=== PATIENT | male | born 1965 | race African-American/Black ===

== ENCOUNTER 2023-03-01 21:43 | Emergency (ER) | payer MEDICARE, MEDICAID | END 2023-03-01 22:44 | disposition left against medical advice (07) | LOC: ER 21:43 | DX: M79.89 Other specified soft tissue disorders (principal); Z53.21 Procedure and treatment not carried out due to patient leaving prior to being seen by health care provider ==

== ENCOUNTER 2023-03-03 05:03 | Inpatient (IN) | payer MEDICARE, MEDICAID ==
[~2023-03-03] VITALS: Ht 177.8 cm; Wt 113.4 kg
[2023-03-03 06:30] VITALS: PULSE 93; RESP 14; TEMP 97.9; O2SAT 94
[2023-03-03] MEDS ORDERED: ONDANSETRON HCL 4 MG/2 ML VIAL IV ONE (06:45)
[2023-03-03] MEDS ORDERED: HYDROmorphone HCL 2 MG/ML VL/or syr IV ONE (06:45)
[2023-03-03] MEDS ORDERED: LABETALOL HCL 5 MG/ML 4ML SYRINGE IV ONE (06:45)
[2023-03-03 07:23] LABS: Urine Bacteria FEW /hpf (None Seen); Urine Blood Negative /uL (Negative); Urine Clarity Clear (Clear); Urine Color Yellow (Yellow); Urine Hyaline Cast FEW /lpf (0 - 2); Urine Mucus FEW (None Seen); Urine Protein, UAD 1+ (Negative); Urine Specific Gravity 1.023 (1.001-1.035); Urine Urobilinogen Normal (Negative); Urine WBC 1 /hpf (0 - 3); Urine pH 6.5 (5.0-8.0)
[2023-03-03] MEDS ORDERED: diphenhdrAMINE HCL 50 MG/1 ML VL IV ONE (09:15)
[2023-03-03] MEDS ORDERED: MORPHINE SULFATE INJ 2 MG/ml SYRG IV PRN (12:15)
[2023-03-03] MEDS ORDERED: NITROGLYCERIN 0.4 MG SL TAB SL PRN (12:15)
[2023-03-03] MEDS ORDERED: HYDROmorphone HCL 2 MG/ML VL/or syr IV PRN (12:15)
[2023-03-03 12:46] VITALS: O2SAT 98
[2023-03-03 12:58] VITALS: BP 143/111; PULSE 86; RESP 15
== END 2023-03-03 14:24 | disposition left against medical advice (07) | DRG 305 ==
LOC: ER 05:03 → EDBD 05:03 → OVERFLOW 12:04
PROVIDERS: ADMIT Internal Medicine Pulmonary Disease; ATTEND Internal Medicine Pulmonary Disease
DX: I16.0 Hypertensive urgency (principal); G35 Multiple sclerosis; Z53.29 Procedure and treatment not carried out because of patient's decision for other reasons; I11.9 Hypertensive heart disease without heart failure; Z88.8 Allergy status to other drugs, medicaments and biological substances
CPT/HCPCS: 71045; 81001; 93005; 96374; 96375; 96376; G0378; J2405; J3490

== ENCOUNTER 2023-03-07 06:16 | Emergency (ER) | payer MEDICARE, MEDICAID ==
[~2023-03-07] VITALS: Ht 182.9 cm; Wt 81.8 kg
[2023-03-07] MEDS ORDERED: HYDROmorphone HCL 2 MG/ML VL/or syr IV ONE (06:45)
[2023-03-07] MEDS ORDERED: HYDROmorphone HCL 2 MG/ML VL/or syr IM ONE (06:45)
[2023-03-07] MEDS ORDERED: ONDANSETRON HCL 4 MG/2 ML VIAL IM ONE (06:45)
[2023-03-07] MEDS ORDERED: ONDANSETRON HCL 4 MG/2 ML VIAL IV ONE (06:45)
[2023-03-07] MEDS ORDERED: diphenhdrAMINE HCL 50 MG/1 ML VL IM ONE (07:15)
[2023-03-07 07:31] VITALS: TEMP 97.9; O2SAT 95
[2023-03-07 07:50] VITALS: BP 111/77; PULSE 99; RESP 16
== END 2023-03-07 07:51 | disposition home or self-care (01) ==
LOC: EDSEX 06:16 → EDBD 06:16 → ER 06:16
DX: M79.10 Myalgia, unspecified site (principal); I11.0 Hypertensive heart disease with heart failure; I50.9 Heart failure, unspecified; I25.2 Old myocardial infarction; E78.5 Hyperlipidemia, unspecified; Z86.73 Personal history of transient ischemic attack (TIA), and cerebral infarction without residual deficits; Z88.8 Allergy status to other drugs, medicaments and biological substances
CPT/HCPCS: 93005; 96372; 99284; J1170; J1200; J2405

== ENCOUNTER 2023-03-10 15:54 | Emergency (ER) | payer MEDICARE, MEDICAID ==
[~2023-03-10] VITALS: Ht 182.9 cm; Wt 107.0 kg
[2023-03-10 16:06] VITALS: BP 118/72; PULSE 84; RESP 16; O2SAT 100
== END 2023-03-10 22:58 | disposition left against medical advice (07) ==
LOC: ER 15:54
DX: M54.50 Low back pain, unspecified (principal); G89.29 Other chronic pain; I11.0 Hypertensive heart disease with heart failure; I50.9 Heart failure, unspecified; I25.2 Old myocardial infarction; E78.5 Hyperlipidemia, unspecified; Z86.73 Personal history of transient ischemic attack (TIA), and cerebral infarction without residual deficits; Z88.8 Allergy status to other drugs, medicaments and biological substances

== ENCOUNTER 2023-03-12 07:51 | Emergency (ER) | payer MEDICARE, MEDICAID ==
[~2023-03-12] VITALS: Ht 190.5 cm; Wt 107.7 kg
[2023-03-12 07:55] VITALS: BP 126/76; PULSE 86; RESP 18; O2SAT 97
== END 2023-03-12 08:19 | disposition left against medical advice (07) ==
LOC: ER 07:51
DX: G89.29 Other chronic pain (principal); M54.50 Low back pain, unspecified; I11.0 Hypertensive heart disease with heart failure; I50.9 Heart failure, unspecified; I25.2 Old myocardial infarction; E78.5 Hyperlipidemia, unspecified; Z76.5 Malingerer [conscious simulation]; Z86.73 Personal history of transient ischemic attack (TIA), and cerebral infarction without residual deficits; Z88.8 Allergy status to other drugs, medicaments and biological substances

== ENCOUNTER 2023-03-14 13:12 | Emergency (ER) | payer MEDICARE, MEDICAID ==
[~2023-03-14] VITALS: Ht 182.9 cm; Wt 108.3 kg
[2023-03-14] MEDS ORDERED: diphenhdrAMINE HCL 50 MG/1 ML VL IM ONE (16:00)
[2023-03-14] MEDS ORDERED: HYDROmorphone HCL 2 MG/ML VL/or syr IM ONE (16:00)
[2023-03-14 16:30] VITALS: BP 146/89; PULSE 97; RESP 18; TEMP 97.2; O2SAT 98
== END 2023-03-14 16:43 | disposition home or self-care (01) ==
LOC: ER 13:12
DX: G35 Multiple sclerosis (principal); G89.29 Other chronic pain; M54.59 Other low back pain; I11.0 Hypertensive heart disease with heart failure; I50.9 Heart failure, unspecified; I25.2 Old myocardial infarction; E78.5 Hyperlipidemia, unspecified; Z86.73 Personal history of transient ischemic attack (TIA), and cerebral infarction without residual deficits; Z88.6 Allergy status to analgesic agent
CPT/HCPCS: 96372; 99284; J1170; J1200

== ENCOUNTER 2023-03-15 10:01 | Emergency (ER) | payer MEDICARE, MEDICAID ==
[~2023-03-15] VITALS: Ht 182.9 cm; Wt 108.8 kg
[2023-03-15 10:26] VITALS: TEMP 97.1; O2SAT 96
[2023-03-15] MEDS ORDERED: ONDANSETRON ODT 4 MG TAB PO ONE (10:45)
[2023-03-15] MEDS ORDERED: diphenhdrAMINE HCL 50 MG/1 ML VL IM ONE (10:45)
[2023-03-15] MEDS ORDERED: HYDROmorphone HCL 2 MG/ML VL/or syr IM ONE (10:45)
[2023-03-15 11:04] VITALS: BP 141/104; PULSE 77; RESP 19
== END 2023-03-15 11:17 | disposition home or self-care (01) ==
LOC: ER 10:01
DX: G89.29 Other chronic pain (principal); M54.59 Other low back pain; F11.20 Opioid dependence, uncomplicated; E78.5 Hyperlipidemia, unspecified; I10 Essential (primary) hypertension; Z76.5 Malingerer [conscious simulation]; Z88.8 Allergy status to other drugs, medicaments and biological substances; Z86.73 Personal history of transient ischemic attack (TIA), and cerebral infarction without residual deficits; Z98.890 Other specified postprocedural states
CPT/HCPCS: 96372; 99284; J1170; J1200; Q0162

== ENCOUNTER 2023-03-16 11:53 | Emergency (ER) | payer MEDICARE, MEDICAID ==
[~2023-03-16] VITALS: Ht 182.9 cm; Wt 107.9 kg
[2023-03-16 12:28] VITALS: BP 143/88; PULSE 89; RESP 17; TEMP 97.1; O2SAT 100
[2023-03-16] MEDS ORDERED: diphenhdrAMINE HCL 50 MG/1 ML VL IM ONE (13:15)
[2023-03-16] MEDS ORDERED: KETOROLAC TROMETH 30 MG/ML 1ML VIAL IV ONE (13:15)
[2023-03-16] MEDS ORDERED: KETOROLAC TROMETH 60MG/2ML VIAL IM ONE (13:45)
== END 2023-03-16 13:20 | disposition home or self-care (01) ==
LOC: ER 11:53
DX: G89.29 Other chronic pain (principal); M54.59 Other low back pain; F11.20 Opioid dependence, uncomplicated; I10 Essential (primary) hypertension; E78.5 Hyperlipidemia, unspecified; Z76.5 Malingerer [conscious simulation]; Z86.73 Personal history of transient ischemic attack (TIA), and cerebral infarction without residual deficits; Z88.8 Allergy status to other drugs, medicaments and biological substances
CPT/HCPCS: 93005; 96372; 99284; J1200; J1885

== ENCOUNTER 2023-03-18 17:14 | Emergency (ER) | payer MEDICARE, MEDICAID ==
[~2023-03-18] VITALS: Ht 182.9 cm; Wt 108.0 kg
[2023-03-18 17:38] VITALS: O2SAT 99
[2023-03-18] MEDS ORDERED: HYDROmorphone HCL 2 MG/ML VL/or syr IM ONE (19:30)
[2023-03-18] MEDS ORDERED: diphenhdrAMINE HCL 50 MG/1 ML VL IM ONE (19:30)
[2023-03-18 20:20] VITALS: BP 147/85; PULSE 89; RESP 20
== END 2023-03-18 20:58 | disposition home or self-care (01) ==
LOC: ER 17:14 → EDBD 17:14 → ER 20:58
DX: G89.29 Other chronic pain (principal); M54.50 Low back pain, unspecified; I10 Essential (primary) hypertension; E78.5 Hyperlipidemia, unspecified; Z86.73 Personal history of transient ischemic attack (TIA), and cerebral infarction without residual deficits; Z88.8 Allergy status to other drugs, medicaments and biological substances
CPT/HCPCS: 93005; 96372; 99284; J1170; J1200

== ENCOUNTER 2023-03-20 18:34 | Emergency (ER) | payer MEDICARE, MEDICAID ==
[~2023-03-20] VITALS: Ht 182.9 cm; Wt 102.0 kg
[2023-03-20 19:00] VITALS: BP 173/103; PULSE 88; RESP 16; TEMP 96.2; O2SAT 98
[2023-03-20] MEDS ORDERED: traMADol HCL 50 MG TAB PO ONE (19:15)
[2023-03-20] MEDS ORDERED: TRAM50TA2 PO (19:20)
== END 2023-03-20 20:18 | disposition home or self-care (01) ==
LOC: ER 18:34
DX: G35 Multiple sclerosis (principal); I10 Essential (primary) hypertension; E78.5 Hyperlipidemia, unspecified; Z76.5 Malingerer [conscious simulation]; Z86.73 Personal history of transient ischemic attack (TIA), and cerebral infarction without residual deficits; Z79.899 Other long term (current) drug therapy; Z88.8 Allergy status to other drugs, medicaments and biological substances

== ENCOUNTER 2023-05-21 10:03 | Emergency (ER) | payer MEDICARE, MEDICAID ==
[~2023-05-21] VITALS: Ht 182.9 cm; Wt 102.7 kg
[~2023-05-21 10:03] MED LIST: TRAM50TA2 PO
[2023-05-21 11:04] VITALS: TEMP 97.7; O2SAT 98
[2023-05-21] MEDS ORDERED: diphenhdrAMINE HCL 50 MG/1 ML VL IM ONE (11:30)
[2023-05-21] MEDS ORDERED: HYDROmorphone HCL 2 MG/ML VL/or syr IM ONE (11:30)
[2023-05-21 11:53] VITALS: BP 136/87; PULSE 116; RESP 16
== END 2023-05-21 11:55 | disposition home or self-care (01) ==
LOC: ER 10:03
DX: G89.29 Other chronic pain (principal); M54.50 Low back pain, unspecified; E78.5 Hyperlipidemia, unspecified; I10 Essential (primary) hypertension; Z86.73 Personal history of transient ischemic attack (TIA), and cerebral infarction without residual deficits
CPT/HCPCS: 96372; 99284; J1170; J1200